=== PATIENT | female | born 2000 | race African-American/Black ===

== ENCOUNTER 2024-08-07 14:23 | Emergency (ER) | payer MEDICAID, OTHER ==
[~2024-08-07] VITALS: Ht 152.4 cm; Wt 70.0 kg
[2024-08-07 14:40] VITALS: BP 91/47; PULSE 46; RESP 16; TEMP 98; O2SAT 99
[2024-08-07] MEDS ORDERED: BUPR1FIL3 SL (18:53)
[2024-08-07] MEDS ORDERED: BUPRENORPHINE 8MG SL TABLET SL ONE (19:00)
[2024-08-07] MEDS: BUPRENORPHINE 8MG SL TABLET SL NR (19:11)
== END 2024-08-07 19:15 | disposition left against medical advice (07) ==
LOC: ER 14:29
DX: R11.2 Nausea with vomiting, unspecified (principal); R10.84 Generalized abdominal pain; F11.90 Opioid use, unspecified, uncomplicated
CPT/HCPCS: 99283; Z7610